=== PATIENT | male | born 1950 | race Caucasian/White ===

== ENCOUNTER 2018-04-21 08:02 | Outpatient (CLI) | payer BC, MEDICARE, OTHER ==
[2018-04-21 11:07] LABS: ALBUMIN 4.4 g/dL (3.2-5.5); ALBUMIN/GLOBULIN RATIO 1.5 (1.0-2.2); ALKALINE PHOSPHATASE 67 IU/L (42-121); ALT ALANINE AMINOTRANSFERASE 25 IU/L (10-60); AST ASPARTATE AMINOTRANSFERASE 31 IU/L (10-42); BUN - BLOOD UREA NITROGEN 18 mg/dL (6-20); CALCIUM 9.4 mg/dL (8.5-10.3); CARBON DIOXIDE - CO2 28 mmol/L (21-32); CHLORIDE 102 mmol/L (101-111); CHOL/HDL RATIO 2.7 (<5.0); CHOLESTEROL 185 mg/dL; CREATININE 0.8 mg/dL (0.6-1.2); GFR - MDRD 97 (>89); GLUCOSE 107 mg/dL (70-100); HDL CHOLESTEROL 69 mg/dL; LDL CHOLESTEROL,CALCULATED 102 mg/dL; LDL/HDL RATIO 1.5 (<3.6); SODIUM 137 mmol/L (135-145); TOTAL PROTEIN 7.4 g/dL (6.7-8.2); VLDL CHOLESTEROL 14 mg/dL
[2018-04-21 11:17] LABS: HB2 TOTAL 13.8 g/dL; HEMOGLOBIN A1C 0.55 g/dL; HEMOGLOBIN A1C % 5.8 % (4.6-6.2)
== END 2018-04-21 08:03 | disposition home or self-care (01) ==
LOC: LAB.F 08:02
PROVIDERS: ATTEND Internal Medicine
DX: E78.5 Hyperlipidemia, unspecified (principal); Z13.1 Encounter for screening for diabetes mellitus; Z12.5 Encounter for screening for malignant neoplasm of prostate
CPT/HCPCS: 36415; 80053; 80061; 83036; 83721; 84153

== ENCOUNTER 2018-11-04 07:26 | Outpatient (CLI) | payer MEDICARE, OTHER ==
[2018-11-04 11:30] LABS: ALBUMIN 4.1 g/dL (3.2-5.5); ALBUMIN/GLOBULIN RATIO 1.3 (1.0-2.2); ALKALINE PHOSPHATASE 69 IU/L (42-121); ALT ALANINE AMINOTRANSFERASE 34 IU/L (10-60); AST ASPARTATE AMINOTRANSFERASE 36 IU/L (10-42); BILIRUBIN,TOTAL 0.7 mg/dL (0.2-1.0); BUN - BLOOD UREA NITROGEN 17 mg/dL (6-20); CALCIUM 9.4 mg/dL (8.5-10.3); CARBON DIOXIDE - CO2 26 mmol/L (21-32); CHLORIDE 105 mmol/L (101-111); CHOL/HDL RATIO 2.8 (<5.0); CHOLESTEROL 168 mg/dL; CREATININE 0.9 mg/dL (0.6-1.2); GFR - MDRD 84 (>89); GLUCOSE 110 mg/dL (70-100); HDL CHOLESTEROL 60 mg/dL; LDL CHOLESTEROL,CALCULATED 97 mg/dL; LDL/HDL RATIO 1.6 (<3.6); SODIUM 140 mmol/L (135-145); TOTAL PROTEIN 7.2 g/dL (6.7-8.2); VLDL CHOLESTEROL 11 mg/dL
== END 2018-11-04 07:27 | disposition home or self-care (01) ==
LOC: LAB.F 07:26
PROVIDERS: ATTEND Internal Medicine
DX: E78.5 Hyperlipidemia, unspecified (principal)
CPT/HCPCS: 36415; 80053; 80061; 83721

== ENCOUNTER 2020-01-29 07:52 | Outpatient (CLI) | payer MEDICARE, OTHER ==
[2020-01-29 08:23] LABS: ALBUMIN 4.6 g/dL (3.2-5.5); ALBUMIN/GLOBULIN RATIO 1.5 (1.0-2.2); ALKALINE PHOSPHATASE 65 IU/L (42-121); ALT ALANINE AMINOTRANSFERASE 32 IU/L (10-60); AST ASPARTATE AMINOTRANSFERASE 33 IU/L (10-42); BILIRUBIN,TOTAL 0.8 mg/dL (0.2-1.0); BUN - BLOOD UREA NITROGEN 19 mg/dL (6-20); CALCIUM 9.9 mg/dL (8.5-10.3); CARBON DIOXIDE - CO2 29 mmol/L (21-32); CHLORIDE 104 mmol/L (101-111); CHOL/HDL RATIO 3.4 (<5.0); CHOLESTEROL 252 mg/dL; CREATININE 0.9 mg/dL (0.6-1.2); GLUCOSE 110 mg/dL (70-100); HDL CHOLESTEROL 75 mg/dL; LDL CHOLESTEROL,CALCULATED 155 mg/dL; LDL/HDL RATIO 2.1 (<3.6); SODIUM 140 mmol/L (135-145); TOTAL PROTEIN 7.7 g/dL (6.7-8.2); VLDL CHOLESTEROL 22 mg/dL
== END 2020-01-29 07:53 | disposition home or self-care (01) ==
LOC: LAB 07:52
PROVIDERS: ATTEND Internal Medicine
DX: E78.5 Hyperlipidemia, unspecified (principal)
CPT/HCPCS: 36415; 80053; 80061; 83721

== ENCOUNTER 2020-12-05 08:20 | Outpatient (CLI) | payer MEDICARE, OTHER ==
[2020-12-05 11:53] LABS: BASOPHILS % (AUTO) 0.4 %; EOSINOPHILS # (AUTO) 0.2 10^3/uL (0.0-0.7); EOSINOPHILS % (AUTO) 3.8 %; HCT - HEMATOCRIT 43.5 % (42.0-52.0); HGB - HEMOGLOBIN 13.9 g/dL (14.0-18.0); LYMPHOCYTES # (AUTO) 1.4 10^3/uL (1.5-3.5); LYMPHOCYTES % (AUTO) 25.1 %; MEAN CORPUSCULAR HEMOGLOBIN 29.9 pg (27.0-31.0); MEAN CORPUSCULAR VOLUME 93.5 fL (80.0-94.0); MEAN PLATELET VOLUME 11.1 fL (7.4-11.4); MONOCYTES # (AUTO) 0.5 10^3/uL (0.0-1.0); MONOCYTES % (AUTO) 9.5 %; NEUTROPHILS # (AUTO) 3.4 10^3/uL (1.5-6.6); PLT - PLATELET COUNT 226 10^3/uL (130-450); RED BLOOD COUNT 4.65 10^6/uL (4.70-6.10); WHITE BLOOD COUNT 5.6 x10^3/uL (4.8-10.8)
[2020-12-05 12:28] LABS: ALBUMIN 4.4 g/dL (3.2-5.5); ALBUMIN/GLOBULIN RATIO 1.3 (1.0-2.2); ALKALINE PHOSPHATASE 76 IU/L (42-121); ALT ALANINE AMINOTRANSFERASE 34 IU/L (10-60); AST ASPARTATE AMINOTRANSFERASE 33 IU/L (10-42); BILIRUBIN,TOTAL 1.2 mg/dL (0.2-1.0); BUN - BLOOD UREA NITROGEN 21 mg/dL (6-20); CALCIUM 9.7 mg/dL (8.5-10.3); CARBON DIOXIDE - CO2 27 mmol/L (21-32); CHLORIDE 100 mmol/L (101-111); CHOL/HDL RATIO 2.6 (<5.0); CHOLESTEROL 188 mg/dL; CREATININE 0.9 mg/dL (0.6-1.2); GFR - MDRD 84 (>89); GLUCOSE 103 mg/dL (70-100); HDL CHOLESTEROL 73 mg/dL; LDL CHOLESTEROL,CALCULATED 98 mg/dL; LDL/HDL RATIO 1.3 (<3.6); POTASSIUM 4.2 mmol/L (3.5-5.0); SODIUM 138 mmol/L (135-145); TOTAL PROTEIN 7.7 g/dL (6.7-8.2); TRIGLYCERIDES 85 mg/dL; VLDL CHOLESTEROL 17 mg/dL
== END 2020-12-05 08:21 | disposition home or self-care (01) ==
LOC: LAB.N 08:20
PROVIDERS: ATTEND Internal Medicine
DX: I10 Essential (primary) hypertension (principal); E78.5 Hyperlipidemia, unspecified; Z12.5 Encounter for screening for malignant neoplasm of prostate
CPT/HCPCS: 36415; 80053; 80061; 85025; G0103; 83721; 84153

== ENCOUNTER 2021-01-23 16:19 | Outpatient (CLI) | payer MEDICARE, OTHER | END 2021-01-23 16:20 | disposition home or self-care (01) | LOC: COV 16:19 | PROVIDERS: ATTEND Family Medicine | DX: M79.10 Myalgia, unspecified site (principal); R07.0 Pain in throat; Z20.822 Contact with and (suspected) exposure to COVID-19 ==

== ENCOUNTER 2021-05-13 09:51 | Day surgery (SDC) | payer MEDICARE, OTHER ==
[2021-05-13] MEDS ORDERED: LACTATED RINGERS 1,000 ML IV ONE ×2 (10:19→11:43)
--- NOTE | 2021-05-13 10:40 | ANESTHESIA ---
Pre-Anesthesia VS, & Labs - Diagnosis screening exam - Procedure colonoscopy Vital Signs: Temp Pulse Resp BP Pulse Ox 36 C L 77 14 141/80 H 99 05/13/21 10:03 05/13/21 10:03 05/13/21 10:03 05/13/21 10:03 05/13/21 10:03 Height: 5 ft 9 in Weight (kg): 91.2 kg Body Mass Index: 29.7 BMI Classification: Overweight - NPO >8 hours Home Medications and Allergies Home Medications: Ambulatory Orders Ibuprofen [Motrin] 1 tablet PO Q8H PRN 05/09/21 Lisinopril [Zestril] 20 mg PO DAILY 05/09/21 Rosuvastatin Calcium [Crestor] 10 mg PO DAILY 05/09/21 Ibuprofen [Motrin] 1 tablet PO Q8H PRN 05/09/21 Lisinopril [Zestril] 20 mg PO DAILY 05/09/21 Rosuvastatin Calcium [Crestor] 10 mg PO DAILY 05/09/21 Valacyclovir HCl [Valtrex] 1,000 mg PO TID PRN 05/09/21 predniSONE [Deltasone] 40 mg PO DAILY PRN 05/09/21 Allergies/Adverse Reactions: Allergies Allergy/AdvReac Type Severity Reaction Status Date / Time codeine AdvReac Unknown Verified 05/13/21 10:39 Anes History & Medical History - Anesthetic History Anesthesia Complications: reports: No previous complications - Medical History Cardiovascular: reports: Hypertension, High cholesterol Pulmonary: reports: None Gastrointestinal: reports: None Urinary: reports: None Neuro: reports: TIA Musculoskeletal: reports: Gout Endocrine/Autoimmune: reports: None Blood Disorders: reports: None Skin: reports: Herpes zoster (last episode 2 years ago) Smoking Status: Former smoker (quit 30 years ago) Psychosocial: reports: No issues indicated History of Cancer?: No - Surgical History General: reports: Colonoscopy Eyes Ears Nose Throat (EENT): reports: Other Orthopedic: reports: Rotator cuff repair, Arthroscopic surgery Other Past Surgical History: Bilateral TMJ arthroplasty Exam General: Alert, Oriented x3, Cooperative, No acute distress Dental: WNL, TMJ (Remy. joint replacements) Mouth Openin Fingerbreadth Neck Mobility: Normal Mallampati classification: II Thyromental Distance: 4-6 cm Mental/Cognitive Status: Alert/Oriented X3, Normal for patient Plan Anesthesia Type: Total IV Consent for Procedure(s) Verified and Reviewed: Yes Code Status: Attempt Resuscitation ASA classification: 2-Mild systemic disease Is this case an emergency?: No
[2021-05-13] MEDS ORDERED: PROPOFOL 500 MG/50 ML 500 MG/50 ML VIAL ONE ×3 (11:04→11:05)
[2021-05-13] MEDS ORDERED: PROPOFOL 200 MG/20 ML VIAL IVP ONE (11:38)
--- NOTE | 2021-05-13 11:57 | ANESTHESIA POST OP EVALUATION ---
Anesthesia Post Eval - Post Anesthesia Eval Vitals: Last Vital Signs Temp 36.4 C L 05/13/21 11:43 Pulse 68 05/13/21 11:43 Resp 16 05/13/21 11:43 BP 105/48 L 05/13/21 11:43 Pulse Ox 98 05/13/21 11:43 CV Function Including HR & BP: Stable Pain Control: Satisfactory Nausea & Vomiting: Negative Mental Status: Baseline Respiratory Status: Airway Patent Hydration Status: Satisfactory Anesthesia Complications: None
[2021-05-13 12:22] VITALS: BP 127/77
== END 2021-05-13 09:52 | disposition home or self-care (01) ==
LOC: SDS 09:51
PROVIDERS: ATTEND Surgery
PROC: 0DBM8ZZ Excision of Descending Colon, Via Natural or Artificial Opening Endoscopic (ICD-10-PCS; principal; 2021-05-13 11:00)
DX: Z12.11 Encounter for screening for malignant neoplasm of colon (principal); D12.4 Benign neoplasm of descending colon; K57.30 Diverticulosis of large intestine without perforation or abscess without bleeding; Z87.891 Personal history of nicotine dependence; I67.9 Cerebrovascular disease, unspecified; K64.8 Other hemorrhoids
CPT/HCPCS: 45380; J7120

== ENCOUNTER 2022-03-24 08:00 | Outpatient (CLI) | payer MEDICARE, OTHER ==
[2022-03-24 16:08] LABS: BASOPHILS % (AUTO) 0.6 %; EOSINOPHILS # (AUTO) 0.3 10^3/uL (0.0-0.7); EOSINOPHILS % (AUTO) 4.1 %; HCT - HEMATOCRIT 43.9 % (42.0-52.0); HGB - HEMOGLOBIN 14.1 g/dL (14.0-18.0); LYMPHOCYTES # (AUTO) 1.7 10^3/uL (1.5-3.5); LYMPHOCYTES % (AUTO) 25.3 %; MEAN CORPUSCULAR HEMOGLOBIN 29.1 pg (27.0-31.0); MEAN CORPUSCULAR HGB CONC 32.1 g/dL (32.0-36.0); MEAN CORPUSCULAR VOLUME 90.7 fL (80.0-94.0); MEAN PLATELET VOLUME 11.9 fL (7.4-11.4); MONOCYTES # (AUTO) 0.6 10^3/uL (0.0-1.0); MONOCYTES % (AUTO) 9.5 %; NEUTROPHILS % (AUTO) 60.2 %; PLT - PLATELET COUNT 179 10^3/uL (130-450); RED BLOOD COUNT 4.84 10^6/uL (4.70-6.10); RED CELL DISTRIBUTION WIDTH 12.5 % (12.0-15.0); WHITE BLOOD COUNT 6.6 x10^3/uL (4.8-10.8)
[2022-03-24 16:27] LABS: ALBUMIN 4.4 g/dL (3.2-5.5); ALBUMIN/GLOBULIN RATIO 1.2 (1.0-2.2); ALKALINE PHOSPHATASE 101 IU/L (42-121); ALT ALANINE AMINOTRANSFERASE 43 IU/L (10-60); AST ASPARTATE AMINOTRANSFERASE 37 IU/L (10-42); BUN - BLOOD UREA NITROGEN 19 mg/dL (6-20); CARBON DIOXIDE - CO2 28 mmol/L (21-32); CHLORIDE 101 mmol/L (101-111); CHOL/HDL RATIO 2.9 (<5.0); CHOLESTEROL 172 mg/dL; CK- CREATINE KINASE 108 IU/L (22-269); GFR - MDRD 74 (>89); GLUCOSE 92 mg/dL (70-100); HDL CHOLESTEROL 59 mg/dL; LDL CHOLESTEROL,CALCULATED 99 mg/dL; LDL/HDL RATIO 1.7 (<3.6); POTASSIUM 4.4 mmol/L (3.5-5.0); SODIUM 139 mmol/L (135-145); TOTAL PROTEIN 8.1 g/dL (6.7-8.2); TRIGLYCERIDES 70 mg/dL; URIC ACID 8.2 mg/dL (2.6-7.2); VLDL CHOLESTEROL 14 mg/dL
[2022-03-24 16:32] LABS: PSA TOTAL 1.487 ng/mL (0.000-2.000)
== END 2022-03-24 23:59 | disposition home or self-care (01) ==
LOC: LAB.R 08:00
PROVIDERS: ATTEND Internal Medicine
DX: Z00.00 Encounter for general adult medical examination without abnormal findings (principal); R05.1 Acute cough; M10.9 Gout, unspecified; E78.5 Hyperlipidemia, unspecified; I10 Essential (primary) hypertension; M54.50 Low back pain, unspecified; Z79.899 Other long term (current) drug therapy; B02.9 Zoster without complications
CPT/HCPCS: 80053; 80061; 82550; 83721; 84153; 84443; 84550; 85025

== ENCOUNTER 2025-02-04 14:20 | Observation (INO) ==
[2025-02-04 15:12] LABS: HCT - HEMATOCRIT 43.0 % (42.0-52.0); HGB - HEMOGLOBIN 13.9 g/dL (14.0-18.0); MEAN PLATELET VOLUME 10.1 fL (7.4-11.4); NRBC ABSOLUTE COUNT (AUTO) 0.00 x10^3/uL; NUCLEATED RED BLOOD CELLS AUTO 0.0 /100WBC; PLT - PLATELET COUNT 222 10^3/uL (130-450); RED CELL DISTRIBUTION WIDTH 13.1 % (12.0-15.0)
--- NOTE | 2025-02-04 15:28 | XRAY Report ---
PROCEDURE: XR Chest 1V INDICATIONS: Chest pain TECHNIQUE: One view of the chest was acquired. COMPARISON: None. FINDINGS: Surgical changes and devices: None. Lungs and pleura: No pleural effusions or pneumothorax. Hypoinflated without focal consolidation. Mediastinum: Mediastinal contours appear normal. Heart size is normal. Bones and chest wall: No suspicious bony lesions. Overlying soft tissues appear unremarkable. IMPRESSION: No acute cardiopulmonary process. Reviewed by: Amirah Foster MD on 02/04/2025 2:27 PM AKDT Approved by: Amirah Foster MD on 02/04/2025 2:27 PM AKDT Station ID: [id number]
[2025-02-04 15:38] LABS: TROPONIN I HIGH SENSITIVITY 6.8 ng/L (2.3-19.7)
[2025-02-04 15:39] LABS: ALT ALANINE AMINOTRANSFERASE 34.0 IU/L (10-60); AST ASPARTATE AMINOTRANSFERASE 35.0 IU/L (10-42); BUN - BLOOD UREA NITROGEN 18.0 mg/dL (6-20); CARBON DIOXIDE - CO2 26.0 mmol/L (21-32); CREATININE 1.0 mg/dL (0.6-1.3); GFR - MDRD 73.0 (>89)
[2025-02-04] MEDS: ONDANSETRON 4 MG/2 ML VIAL IVP STA (15:53)
[2025-02-04] MEDS: SODIUM CHLORIDE 0.9% 1,000 ML IV STA (15:53)
[2025-02-04] MEDS: MORPHINE 2 MG/ML CARPUJECT IVP STA (15:53)
--- NOTE | 2025-02-04 16:30 | CT Report ---
PROCEDURE: CT Abdomen/Pelvis W INDICATIONS: abdominal pain mid epigastric CONTRAST: 100ml omni 300 TECHNIQUE: After the administration of intravenous contrast, a CT scan of the abdomen and pelvis was performed. Images were recorded and evaluated at appropriate window settings. Reformats: coronal and sagittal. For radiation dose reduction, the following was used: automated exposure control, adjustment of mA and/or kV according to patient size. COMPARISON: None. FINDINGS: Image quality: Diagnostic. Lower chest: Left lower lobe groundglass opacity. Liver: No solid mass. Free fluid is seen adjacent to the liver. Gallbladder: Unremarkable. Biliary tree: No intrahepatic or extrahepatic dilation, accounting for age. Spleen: No splenomegaly. Pancreas: No pancreatic ductal dilation. Adrenals: No adrenal nodule. Kidneys and ureters: No hydronephrosis. No renal cystic lesion which requires follow up. No solid mass. Stomach, bowel and peritoneum: Multiple distended loops of small bowel are dilated up to 4 cm. There is a focal short segment transition point within the mid abdomen as seen on axial images 50-55. Distal to this is a longer segment of circumferential small bowel thickening with mild associated mesenteric edema. There is no extraluminal gas. The colon has normal appearance. The appendix is normal. Lymph nodes: No central or retroperitoneal adenopathy. Vessels: No infrarenal aortic aneurysm. Patent portal vein. PELVIS Reproductive organs: The prostate is enlarged measuring 6.1 cm. Bladder: No abnormal wall thickening. Pelvic lymph nodes: No pelvic adenopathy by size criteria. Bones: No aggressive osseous abnormality. Other: No significant ventral or inguinal hernia. IMPRESSION: Small bowel obstruction associated with an area of small bowel enteritis. Reviewed by: Amirah Foster MD on 02/04/2025 3:28 PM RICARDA Approved by: Amirah Foster MD on 02/04/2025 3:28 PM AKDT Station ID: [id number]
--- NOTE | 2025-02-04 16:57 | ED Physician Documentation ---
History of Present Illness Stated complaint Stated Complaint: ABD PX Chief complaint Chief Complaint: Abd Pain History obtained from History obtained from: Patient History of Present Illness Timing: Prior to arrival Additonal information Additional information: Patient is a 74-year-old male presenting to the emergency department with midline abdominal pain. Symptoms have been going on since around 730 this morning. Patient last ate breakfast around 7 AM. He notes he was feeling fine last night no history of abdominal surgeries he is not vomiting but feels very nauseous. He describes his pain in his epigastric region rating down to his lower belly but no pain radiating to his testicles or chest. He has no shortness of breath no dizziness or lightheadedness with his symptoms. He describes this pain as stabbing pain that seems to come and go. Last colonoscopy was about 3 years ago that Was in 2020 showing tubular adenoma with no signs of cancer. Patient denies any bowel movements no diarrhea he has not believe he is passing gas but he has burping Meds/Allgy Home Medications Ambulatory Orders Medication Instructions Recorded Confirmed ibuprofen 800 mg tablet 1 tab PO Q8H PRN PAIN &/OR F EVER 05/09/21 05/13/21 lisinopril 20 mg tablet (Zestril) 20 mg PO DAILY 05/0905/13/21 rosuvastatin 10 mg tablet (Crestor) 10 mg PO DAILY 08/2505/13/21 Allergies Allergies Allergy/AdvReac Type Severity Reaction Status Date / Time codeine AdvReac Unknown Verified 02/04/25 14:29 PFSH Active Problems All Active Problems (Updated 02/04/25 @ 16:55 by Latasha Moss MD) Small bowel obstruction (Acute) Enteritis of small bowel (Acute) Medical History Medical History (Updated 02/04/25 @ 16:55 by Latasha Moss MD) Erectile dysfunction Torn meniscus With surgery in 1999 TMJ (temporomandibular joint syndrome) With surgery in 1988 Hypertension Hyperlipidemia Shingles 2016 Gout GERD (gastroesophageal reflux disease) Surgical History Surgical History (Updated 02/04/25 @ 16:55 by Latasha Moss MD) History of colonoscopy H/O arthroscopic knee surgery Family History Family History (Updated 02/04/25 @ 16:58 by Latasha Moss MD) Father Alcoholism COPD (chronic obstructive pulmonary disease) Mother CAD (coronary artery disease) Sister Alcoholism Son MVA (motor vehicle accident) Social History Social History Smoking Status: Former smoker If you are a former smoker, when did you quit? (Date/Year): 1989 Number of Years Smoked: 30 How many cigarettes a day do you smoke? 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 [employer] Retired: Yes Service: Yes POLST Patient has POLST: No Exam Exam Vital Signs: Vital Signs x48h Temp Pulse Resp BP Pulse Ox 02/04/25 16:00 75 18 165/93 H 96 02/04/25 15:06 59 L 21 185/95 H 99 02/04/25 14:29 36 C L 61 20 143/74 H 98 Constitutional normal general appearance HENMT normocephalic and head/scalp atraumatic Eyes PERRL, EOMs intact bilaterally and conjunctivae normal Neck/C-Spine visual inspection normal Lymph no lymphadenopathy noted Chest inspection of chest normal Respiratory breath sounds equal bilaterally, normal respiratory effort and clear to auscultation bilaterally Cardiovascular normal heart rate noted, regular rhythm noted, no gallop and no rub Gastrointestinal abdomen normal to inspection Generalized abdominal tenderness on palpation mild distention but it does appear slightly soft on examination. Generalized guarding on examination. Genitourinary no CVA tenderness Results Vitals Vitals: Vital Signs - 24 hr 02/04/25 14:29 02/04/25 15:06 02/04/25 15:53 Temperature 36 C L Temperature Source Temporal Artery Scan Pulse Rate 61 59 L Respiratory Rate 20 21 Blood Pressure 143/74 H 185/95 H O2 Saturation 98 99 O2 Source Room air Room air Pain Intensity 10 10 02/04/25 16:00 Temperature Temperature Source Pulse Rate 75 Respiratory Rate 18 Blood Pressure 165/93 H O2 Saturation 96 O2 Source Room air Pain Intensity 4 Oxygen O2 Source Room air EKG (time done) 1453: EKG releavant findings:: EKG personally interpreted by author of this note. Relevant findings are: Rate: Rate (enter#) (71 bpm) Rhythm: NSR [place]: Normal Intervals: Normal NM QRS: QRS normal Ischemia: Normal ST segments Other comments: Other comments Compare to prior EKG: Unchanged from prior EKG Computer interpretation: Agree with computer Labs Labs: Laboratory Tests 02/04/25 15:08 WBC 11.3 H RBC 4.73 Hgb 13.9 L Hct 43.0 MCV 90.9 MCH 29.4 MCHC 32.3 RDW 13.1 Plt Count 222 MPV 10.1 Neut # (Auto) 8.8 H Lymph # (Auto) 1.4 L [place] # (Auto) 0.7 Eos # (Auto) 0.3 Baso # (Auto) 0.0 Absolute Nucleated RBC 0.00 Nucleated RBC % 0.0 Sodium 136 Potassium 3.9 Chloride 100 L Carbon Dioxide 26 Anion Gap 10.0 BUN 18 Creatinine 1.0 Estimated GFR (MDRD) 73 L Glucose 126 H Calcium 10.4 H Total Bilirubin 0.6 AST 35 ALT 34 Alkaline Phosphatase 114 Troponin I High Sens 6.8 Total Protein 7.5 Albumin 4.6 Globulin 2.9 Albumin/Globulin Ratio 1.6 Lipase 17 PD Medical Decision Making ED course Complexity details: reviewed old records and reviewed results ED course: Patient is a 74-year-old male presenting to the emergency department with abdominal pain symptoms started around 7 AM he has no history of abdominal surgeries generally healthy no vomiting but has some abdominal cramping with the symptoms. He denies any diarrhea no bowel movements today and he is not passing gas. He has some nausea with the symptoms and has been belching as well. Vitals here in the ED reassuring he is normotensive nontachycardic afebrile. CXR: No acute cardiopulmonary process. Labs showed minimal leukocytosis his EKG shows occasional PVCs but no acute ST elevations and his troponin is well within normal limits he has some mild leukocytosis of 11.8 no significant electrolyte abnormality or elevation in LFTs or bilirubin. Patient sent for CT abdomen pelvis CT abdomen pelvis: Small bowel obstruction associated with an area of small bowel enteritis. Discussed case with on-call surgeon Dr. Morse he recommends starting NG tube he will evaluate patient in the hospital but would like hospitalist to admit patient. Discussed with hospitalist Dr. Chavis who accepts patient and will admit to floor NG tube orders were placed here in the ED. Discharge Plan Discharge Patient Disposition: [facility] DC/Xfer Condition: Good Clinical Impression: Enteritis of small bowel, Small bowel obstruction Prescriptions: No Action ibuprofen 800 MG tablet 1 tab PO Q8H PRN (Reason: PAIN &/OR FEVER) lisinopril [Zestril] 20 MG tablet 20 mg PO DAILY rosuvastatin [Crestor] 10 MG tablet 10 mg PO DAILY Print Language: Vincentian
--- NOTE | 2025-02-04 17:01 | HISTORY & PHYSICAL EXAMINATION ---
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 Last colonoscopy was 2020.He does not have any major medical issues. He does not have any history of GI problems. He takes an ibuprofen 800 mg a day on a daily basis for years now because of chronic back pain. To prevent ulcers he also takes a proton pump inhibitor on a daily basis. He has not had any recent change in bowel or bladder habits. He [place] the [place] in [facility] [place] had any more recent travel than that. No recent raw fish, oysters. Did eat some cooked mussels last week. No one else in his family is sick. There is no diarrhea. He does not have any vascular history other than a "mini stroke" 9 years ago when he was in [place] at work. He was sitting at his desk at work when he suddenly was overcome by intense nausea, cold sweats, and vision started going and he could not hear the person in front of him. He was taken to the hospital and released the next day where he was told he had "a mini stroke". Imaging was negative. A few days later a friend of his who is a doctor and lives in [place] saw him for a heart murmur and he was told that his heart was fine. He has never had angina, congestive heart failure. His risk for vascular disease is male sex, hyperlipidemia, hypertension. His primary care provider is a midlevel provider that he cannot remember her name. She is with [facility]. He woke this morning and started having epigastric abdominal pain. The pain went from the epigastrium to the umbilicus was intense and a 10 out of a 10. It was unremitting. He felt like it was nonstop with pain being poured on top of pain over and over again. No chest pain. No shortness of breath. No neck pain or jaw pain. No vomiting. Bowel movement was today. No diarrhea. No blood in urine or stool. He has never had gallbladder issues. After no relief of pain with an extra ibuprofen, he came to the ER. He said that as he was getting up from his chair in the waiting room to be taken back by the triage nurse, the pain was overwhelmingly intense and he lost consciousness for a moment. Temperature was 36.6. Pulse 61. Respirations 20. O2 sat 98% on room air, and 143/74 blood pressure. His lungs were clear, no respiratory distress. Abdomen had generalized abdominal tenderness on palpation with mild distention but was soft. Generalized guarding on exam. No CVA tenderness. His chemistries were normal except for calcium that was mildly elevated at 10.4. In looking at his old records his calcium was 9.4 in 2018, 10.March, and now 10.4. Liver enzymes are normal. Lipase is 17. White cell count was 11.3, hemoglobin 13.9. He did have a mild left shift on his white cell count. Chest x-ray did not have acute cardiopulmonary process. Abdomen/pelvis CT had left lower lobe groundglass opacity. Free fluid seen adjacent to the liver. The biliary tree was unremarkable as was the gallbladder. Spleen and pancreas were unremarkable. Small bowel, had multiple distended loops of small bowel dilated up to 4 cm. Focal short segment transition point within the mid abdomen. Distal to this is a longer segment of circumferential small bowel thickening with mild associated mesenteric edema. There is no extraluminal gas. No infrarenal aortic aneurysm. Patent portal vein. The ER provider discussed the case with general surgery. Patient needs to be admitted for small bowel enteritis with possible early obstruction. General surgery is asking if we could admit and they will consult. On review of systems he tells me that he has early cataracts. But no glaucoma or vision problems. No problems with swallowing or allergies. Had bronchitis once in his life but no chronic lung problems. No history of angina, congestive heart failure, palpitations. No edema orthopnea. No problems with GI tract. No reflux, indigestion. He takes the ibuprofen 800 mg a day and then takes a PPI to protect his stomach. He denies any problems with his prostate. Pees 2 times a night but he also drinks a glass of water twice a night. No problem with stream. He has terrible chronic back pain and has had lumbar epidural steroid injections. That is why he takes the ibuprofen. But no problems in his hips or knees. No recent skin changes. No unexpected weight loss or weight gain. No cold symptoms. Denies depression, anxiety, suicidal ideation. No hallucinations. Denies any problems with memory, syncope, or seizures. Meds/Allgy Home Medications Ambulatory Orders Medication Instructions Recorded Confirmed ibuprofen 800 mg tablet 1 tab PO Q8H PRN PAIN &/OR F EVER 05/09/21 05/13/21 lisinopril 20 mg tablet (Zestril) 20 mg PO DAILY 05/0905/13/21 rosuvastatin 10 mg tablet (Crestor) 10 mg PO DAILY 08/2505/13/21 Allergies Allergies Allergy/AdvReac Type Severity Reaction Status Date / Time codeine AdvReac Unknown Verified 02/04/25 14:29 PFSH Active Problems All Active Problems (Updated 02/04/25 @ 19:33 by Latasha Moss MD) Hypercalcemia (Acute) Full code status (Acute) Small bowel obstruction (Acute) Enteritis of small bowel (Acute) Medical History Medical History (Updated 02/04/25 @ 19:33 by Latasha Moss MD) Chronic back pain Erectile dysfunction Torn meniscus With surgery in 1999 TMJ (temporomandibular joint syndrome) With surgery in 1988 Hypertension Hyperlipidemia Shingles 2016 Gout GERD (gastroesophageal reflux disease) Surgical History Surgical History (Updated 02/04/25 @ 17:40 by Angelo Morse MD) History of mandibular surgery History of colonoscopy H/O arthroscopic knee surgery Family History Family History (Updated 02/04/25 @ 16:58 by Latasha Moss MD) Father Alcoholism COPD (chronic obstructive pulmonary disease) Mother CAD (coronary artery disease) Sister Alcoholism Son MVA (motor vehicle accident) Social History Social History (Updated 02/04/25 @ 19:15 by Latasha Moss MD) Smoking Status: Former smoker If you are a former smoker, when did you quit? (Date/Year): 06/07/1987 Number of Years Smoked: 30 How many cigarettes a day do you smoke? (20 cigarettes=1 Pk): 20 Second hand tobacco smoke exposure: No Do you dip or chew tobacco?: No Do you vape?: No Living arrangement: At home Marital Status: Living Condition: With spouse/s.o. Support Person: Yes Living Situation Details: 1/2-year the [place], other half year [facility]. to second . 1 child with first . Step child with second . Has a Durable Power of Loading Unit Operator Seating for Health Care?: No DPOA on file?: No Has Health Care Directive?: No DPOA / Health Care Directive - Additional Notes: He is asking where he could set this up. Also wants to know where he can set up a trust. Physical Activity: Competitive athletics How many days per week?: 4 Level: Independent Physical - Functional Details: pickleball 4 times a week. Very active. No use of DME. 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 No use of durable medical equipment. Lives half the year here in [place] and the other half of the year and [facility] with his second . Exam Exam Vital Signs: Vital Signs x48h Temp Pulse Pulse Resp BP BP Pulse Ox 02/04/25 18:30 78 164/89 H 02/04/25 17:54 36.6 C 83 12 166/98 H 97 02/04/25 17:19 65 18 164/85 H 98 02/04/25 16:00 75 18 165/93 H 96 02/04/25 15:06 59 L 21 185/95 H 99 02/04/25 14:29 36 C L 61 20 143/74 H 98 Alert and oriented pleasant white male looks stated age, with NG tube in place. Able to give me a lucid history and currently pain is controlled Constitutional normal general appearance and average body habitus HENFL normocephalic, head/scalp atraumatic and hearing grossly normal bilaterally Eyes PERRL and no scleral icterus Neck/C-Spine supple and no carotid bruits Chest inspection of chest normal and palpation of chest normal Respiratory breath sounds equal bilaterally, normal respiratory effort, clear to auscultation bilaterally and no wheezes Rales present both lung bases, very faint Cardiovascular normal heart rate noted, regular rhythm noted, no gallop, no rub and no murmur Gastrointestinal abdomen normal to inspection, abdomen soft to palpation and normoactive bowel sounds Mild generalized tenderness. Says he feels better than the ER but he dreads the idea of the pain coming back. Genitourinary no CVA tenderness Extremities normal to inspection, normal to palpation, no tenderness, full ROM and no joint enlargement Neurology drive thru order taker II-XII intact, no movement abnormality noted, no focal motor deficit noted and deep tendon reflexes 2+ bilaterally Psychiatry oriented x3, thought process normal, cooperative, affect normal and psychomotor activity normal Skin skin color normal, no rash, no lesions and no ecchymosis noted Conclusion/Plan Problem List (1) Enteritis of small bowel: Plan: Differential diagnosis is broad right now. But doubtful he has inflammatory bowel disease. But there does appear to be skip areas in his small bowel where he has enteritis, normal bowel then enteritis again. Quite dilated and painful for this gentleman. NG tube suction really helped. Other possibility is that of stomach gastritis. I would think that he would have a stomach ulcer or duodenal ulcer from his daily Motrin and this should not give him small bowel dysfunction. Other idea is that of ischemic lesion. But it should be a continuous bowel problem not a skip bowel problem. He does have a history of "mini stroke" but I think, with his history, that he is describing a severe vasovagal reaction. He has no reduced ejection fracture, sudden low outflow state, or documented vascular disease to make me think he has ischemic bowel. The anatomy of this also does not lend itself to ischemic bowel with SMA or DANNA. Infectious diarrhea or parasite is a possibility but he does not eat raw fish, has not eaten any raw fish recently and there is no one else sick in his family. There is also no diarrhea. Plan: Observation status as surgery does evaluation Surgery has already ordered a small bowel follow-through with Gastrografin I will order IV fluids for hydration, Zofran ODT and IV for nausea, oxycodone and Dilaudid IV for pain I will order low intermittent suction to the NG tube already placed Daily CBC and BMP (2) Hypertension: Plan: Right now we are giving him IV fluids. I am also going to add oxycodone for p.o. pain meds, and Dilaudid for IV pain meds. Because he is going to be going on low intermittent suction, I we will give him Vasotec 1.25 mg IV push every 6 hours for hypertension. Qualifiers: Hypertension type: primary hypertension Qualified Code(s): I10 - Essential (primary) hypertension (3) Chronic back pain: Plan: Currently using 800 mg of ibuprofen on a daily basis. I explained to him the risk of that. He might want to consider going to Celebrex instead to slightly reduce his risk of gastritis or duodenal ulcer. Continue the proton pump inhibitor. Qualifiers: Back pain location: low back pain (4) Full code status: Plan: If he is without a pulse or pressure the patient stated he still wants to be resuscitated. He wants CPR and chest compression and intubation. (5) Hypercalcemia: Plan: check PTH in the morning Lab Results Lab results reviewed: Yes 02/04/25 15:08 02/04/25 15:08 Core Measures Anticipated LOS I expect patient to be DC'd or transferred within 96 hours.: Yes DVT/VTE - Prophylaxis VTE/DVT Device ordered at admit?: Yes
--- NOTE | 2025-02-04 17:36 | CONSULTATION NOTE ---
Referring Provider Name of Referring Provider:: Dr Moss Consult Date: 02/04/25 Chief Complaint Chief Complaint Chief Complaint: Abdominal pain History of Present Illness Admitted From Admitted From:: ED History Obtained From History obtained from: Patient Exam Limitations: None History of Present Illness HPI Comment/Other: Mr Tafoya is a 74 year old male who developed the sudden onset of mid-epigastric abdominal pain at 0700 today. The pain was constant, sharp, non-radiating and at a level of "12" in severity. He had a bowel motion several hours before the discomfort began. He denies diarrhea, nausea, emesis, or fever. He has not passed flatus today since the am bowel motion. He has never had similar symptoms. He denies recent travel or the ingestion of unusual foods. He has never had abdominal surgery. He does not use toothpicks. There is no personal or FH of Crohn's disease or other issues with the large or small bowel. Since admission to the ED he was given IV Dilaudid and an NGT has been placed. His discomfort has been reduced to 5-6. PFSH Active Problems All Active Problems Small bowel obstruction (Acute) Enteritis of small bowel (Acute) Medical History Medical History Erectile dysfunction Torn meniscus With surgery in 1999 TMJ (temporomandibular joint syndrome) With surgery in 1988 Hypertension Hyperlipidemia Shingles 2016 Gout GERD (gastroesophageal reflux disease) Surgical History Surgical History (Updated 02/04/25 @ 17:40 by Angelo Morse MD) History of mandibular surgery History of colonoscopy H/O arthroscopic knee surgery Family History Family History (Updated 02/04/25 @ 16:58 by Latasha Moss MD) Father Alcoholism COPD (chronic obstructive pulmonary disease) Mother CAD (coronary artery disease) Sister Alcoholism Son MVA (motor vehicle accident) Social History Social History (Updated 02/04/25 @ 17:00 by Latasha Moss MD) Smoking Status: Former smoker If you are a former smoker, when did you quit? (Date/Year): 1989 Number of Years Smoked: 30 How many cigarettes a day do you smoke? 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 [employer] Retired: Yes Service: Yes POLST Patient has POLST: No Meds/Allgy Home Medications Ambulatory Orders Medication Instructions Recorded Confirmed ibuprofen 800 mg tablet 1 tab PO Q8H PRN PAIN &/OR F EVER 05/09/21 05/13/21 lisinopril 20 mg tablet (Zestril) 20 mg PO DAILY 05/0905/13/21 rosuvastatin 10 mg tablet (Crestor) 10 mg PO DAILY 08/2505/13/21 Allergies Allergies Allergy/AdvReac Type Severity Reaction Status Date / Time codeine AdvReac Unknown Verified 02/04/25 14:29 Results Lab Results 02/04/25 15:08 02/04/25 15:08 Other Lab Results: Lab Results x24hrs 02/04/25 Range/Units 15:08 WBC 11.3 H (4.8-10.8) x10^3/uL RBC 4.73 (4.70-6.10) 10^6/uL Hgb 13.9 L (14.0-18.0) g/dL Hct 43.0 (42.0-52.0) % MCV 90.9 (80.0-94.0) fL MCH 29.4 (27.0-31.0) pg MCHC 32.3 (32.0-36.0) g/dL RDW 13.1 (12.0-15.0) % Plt Count 222 (130-450) 10^3/uL MPV 10.1 (7.4-11.4) fL Neut # (Auto) 8.8 H (1.5-6.6) 10^3/uL Lymph # (Auto) 1.4 L (1.5-3.5) 10^3/uL [place] # (Auto) 0.7 (0.0-1.0) 10^3/uL Eos # (Auto) 0.3 (0.0-0.7) 10^3/uL Baso # (Auto) 0.0 (0.0-0.1) 10^3/uL Absolute Nucleated RBC 0.00 x10^3/uL Nucleated RBC % 0.0 /100WBC Sodium 136 (135-145) mmol/L Potassium 3.9 (3.5-4.5) mmol/L Chloride 100 L (101-111) mmol/L Carbon Dioxide 26 (21-32) mmol/L Anion Gap 10.0 (6-13) BUN 18 (6-20) mg/dL Creatinine 1.0 (0.6-1.3) mg/dL Estimated GFR (MDRD) 73 L (>89) Glucose 126 H (74-104) mg/dL Calcium 10.4 H (8.5-10.3) mg/dL Total Bilirubin 0.6 (0.2-1.0) mg/dL AST 35 (10-42) IU/L ALT 34 (10-60) IU/L Alkaline Phosphatase 114 (42-121) IU/L Troponin I High Sens 6.8 (2.3-19.7) ng/L Total Protein 7.5 (6.4-8.9) g/dL Albumin 4.6 (3.2-5.5) g/dL Globulin 2.9 (2.1-4.2) g/dL Albumin/Globulin Ratio 1.6 (1.0-2.2) Lipase 17 (11-82) U/L Diagnostic Imaging Results Diagnostic Imaging Results: positive Final report reviewed Diagnostic Imaging Results Comments: CT Abd/Pelvis - dilated small bowel proximal to a small segment of enteritis. No free air. No free fluid. No evidence of a mesenteric swirl or intrnal hernia. Stool and air in colon. No inguinal or femoral hernias Review of Systems Constitutional Reports: Diaphoresis Gastrointestinal Reports: Abdominal pain Exam Exam Vital Signs: Vital Signs x48h Temp Pulse Resp BP Pulse Ox 02/04/25 17:19 65 18 164/85 H 98 02/04/25 16:00 75 18 165/93 H 96 02/04/25 15:06 59 L 21 185/95 H 99 02/04/25 14:29 36 C L 61 20 143/74 H 98 Constitutional normal general appearance HENMT normocephalic, head/scalp atraumatic, hearing grossly normal bilaterally and oropharynx normal NGT in place and functional Eyes PERRL, EOMs intact bilaterally, conjunctivae normal and no scleral icterus Neck/C-Spine visual inspection normal and trachea midline Lymph no lymphadenopathy noted Chest inspection of chest normal and palpation of chest normal Respiratory breath sounds equal bilaterally, normal respiratory effort, clear to auscultation bilaterally and no wheezes Cardiovascular normal heart rate noted, regular rhythm noted and no murmur Gastrointestinal abdomen normal to inspection, abdomen soft to palpation, nontender to percussion, nondistended and no masses Hypoactive BS; tender in mid-epigastric region but no peritoneal signs Extremities normal to inspection, normal to palpation, no tenderness and full ROM Neurology no movement abnormality noted, no focal motor deficit noted and speech normal Psychiatry mental status grossly normal, thought process normal, cooperative and affect normal Skin skin color normal, no rash, no lesions and skin turgor normal Conclusion/Plan Problem List (1) Small bowel obstruction: Plan: There is no clinical, lab, or image evidence of ischemic bowel at this time (2) Enteritis of small bowel: Plan 1) NGT to LIS 2) Maintenance IV fluids 3) PPI (ordered) 4) Toradol (ordered) 5) SB challenge study (ordered) 6) Labs in am 7) May have ice chips with NGT in place and on LIS 8) Surgery will follow Angelo Morse MD, [facility] General Surgery Service Lab Results 02/04/25 15:08 02/04/25 15:08 Diagnostic Imaging Results Diagnostic Imaging Results: positive Final report reviewed
[2025-02-04] MEDS ORDERED: DIATR MEGLU/DIATRIZOATE SODIUM 120 ML BOTTLE ONE (17:37)
[2025-02-04] MEDS ORDERED: ONDANSETRON 4 MG/2 ML VIAL IVP PRN (17:42)
[2025-02-04] MEDS ORDERED: ACETAMINOPHEN 325 MG TABLET PO PRN (17:42)
[2025-02-04] MEDS ORDERED: SODIUM CHLORIDE FLUSH 0.9% 10 ML SYRINGE IVP PRN (17:42)
[2025-02-04] MEDS ORDERED: ONDANSETRON ODT 4 MG TABLET TL PRN (17:42)
[2025-02-04] MEDS ORDERED: oxyCODONE 5 MG TABLET PO PRN (17:42)
--- NOTE | 2025-02-04 17:44 | XRAY Report ---
PROCEDURE: XR Chest for Line Placement INDICATIONS: NG placement TECHNIQUE: One view of the chest was acquired. COMPARISON: 02/04/2025. FINDINGS: Surgical changes and devices: There is been interval placement of an enteric tube which terminates within the stomach. Lungs and pleura: No pleural effusions or pneumothorax. No consolidation. Mediastinum: Mediastinal contours appear normal. Heart size is normal. Bones and chest wall: No suspicious bony lesions. Overlying soft tissues appear unremarkable. IMPRESSION: Enteric tube terminating within the stomach. Reviewed by: Amirah Foster MD on 02/04/2025 4:42 PM RICARDA Approved by: Amirah Foster MD on 02/04/2025 4:42 PM AKFERMIN Station ID: [id number]
[2025-02-04] MEDS: SODIUM CHLORIDE 0.9% 1,000 ML IV SCH (18:20)
[2025-02-04] MEDS: SODIUM CHLORIDE FLUSH 0.9% 10 ML SYRINGE IVP SCH (18:21)
[2025-02-04] MEDS: KETOROLAC 15 MG/ML VIAL IVP SCH (18:21)
[2025-02-04] MEDS: ENALAPRILAT 1.25 MG/ML VIAL IVP SCH (18:29)
[2025-02-04] MEDS: DIATR MEGLU/DIATRIZOATE SODIUM 120 ML BOTTLE PO ONE (18:37)
[2025-02-05 03:05] LABS: GLUCOSE, URINE (UA) NEGATIVE (NEGATIVE); KETONES,URINE (UA) TRACE mg/dL (NEGATIVE); OCCULT BLOOD,URINE TRACE-INTACT (NEGATIVE)
[2025-02-05 03:11] LABS: SQUAMOUS EPITHELIAL CELL,UR RARE Squamous (<= Few)
[2025-02-05] MEDS: HYDROmorphone 0.5 MG/0.5 ML SYRINGE IVP PRN (04:00)
[2025-02-05 05:11] LABS: HCT - HEMATOCRIT 41.3 % (42.0-52.0); HGB - HEMOGLOBIN 13.1 g/dL (14.0-18.0); MEAN PLATELET VOLUME 10.3 fL (7.4-11.4); NRBC ABSOLUTE COUNT (AUTO) 0.00 x10^3/uL; NUCLEATED RED BLOOD CELLS AUTO 0.0 /100WBC; PLT - PLATELET COUNT 203 10^3/uL (130-450); RED CELL DISTRIBUTION WIDTH 13.2 % (12.0-15.0)
[2025-02-05 05:29] LABS: BUN - BLOOD UREA NITROGEN 19.0 mg/dL (6-20); CARBON DIOXIDE - CO2 26.0 mmol/L (21-32); CREATININE 1.0 mg/dL (0.6-1.3); GFR - MDRD 73.0 (>89)
[2025-02-05] MEDS: PANTOPRAZOLE 40 MG VIAL IV SCH (06:29)
[2025-02-05] MEDS ORDERED: PANTOPRAZOLE 40 MG VIAL IVP SCH (07:00)
--- NOTE | 2025-02-05 08:06 | PROVIDER PROGRESS NOTE ---
Progress Note Progress Note Progress Note: General Surgery Progress Note Hospital Day # 2 - SBO vs Ileus Code Status: Full ASSESSMENT: 1) SBO/enteritis - resolved. Etiology of the enteritis unknown PLAN: 1) Remove NGT (Done) 2) Clear liquid diet (Ordered) 3) If no recurrence of symptoms this morning, may be discharged to home <><><><><> PERTINENT INTERVAL ISSUES: None S: Feels back to normal. Passing stool and flatus from rectum. No abdominal pain. NGT irritating to throat OBJECTIVE: I/O: (NGT 1450 yesterday - tube has been clamped since SB challenge started) VS: BP 139/85; P 72; RR 16; T 36.6 EXAMINATION: MENTAL STATUS: AAO; Comfortable EYES: Pupils equal, round and reactive to light, sclera anicteric, EARS, NOSE, MOUTH, THROAT: Normal hearing, Oral mucous membranes moist and without lesions; NGT in place - Removed NECK: No crepitus, lymphadenopathy, or thyromegaly LUNGS: Clear to auscultation without wheezing; No use of accessory muscles to breathe CARDIOVASCULAR: Heart-NSR without murmurs; ABD: Soft, non-tender, non-distended, BS EXTREMITIES: No clubbing, cyanosis, infections SKIN: Anicteric; No rashes, lesions, ulcerations LABS: WBC 8.4; H&H 41.3/13.1; PLT 203K; NA 149; K 4.1; Cr 1.01; Glu 107 CULTURES:None pending] IMAGING: SB Challenge - contrast in colon All images were personally reviewed by me for this encounter. ANTIMICROBIALS: Prophylactic completed PAIN CONTROL: Dilaudid IV prn, Ketorolac IV VTEP: Chemical: Enoxaparin, 40mg, SQ, QD Mechanical: SCD Angelo Morse MD, FACS General Surgery Service
--- NOTE | 2025-02-05 08:34 | XRAY Report ---
PROCEDURE: XR SBFT Challenge Panel INDICATIONS: SBO vs Ileus COMPARISON: CT abdomen pelvis 02/04/2025 FINDINGS: KUB: Preprocedural instrument maker apprentice film demonstrates a normal bowel gas pattern. No suspicious abdominal calcifications. Visualized solid organ contours appear normal. No suspicious bony abnormalities. Nasogastric tube is present. Small bowel: There is delayed transit time of barium through the small bowel. Small bowel loops are of normal caliber throughout. Small minimal contrast is identified within the bowel 4 hours, contrast is within the colon at 10.5 hours. IMPRESSION: Initial delay of contrast at the 4 hour brook. However, by the last image at 10.5 hours, contrast is within the colon. No dilated loops of bowel. Reviewed by: Maribeth Guerra MD on 02/05/2025 8:32 AM PDT Approved by: Maribeth Guerra MD on 02/05/2025 8:32 AM PDT Station ID: [id number]
[2025-02-05] MEDS: ENOXAPARIN 40 MG/0.4 ML SYRINGE SUBQ SCH (08:49)
--- NOTE | 2025-02-05 10:11 | PHARMACY PROGRESS NOTE ---
Best Possible Medication History Admit Date and Time: 02/04/25 1645 Home Medications Medication Instructions Recorded Confirmed Type ibuprofen 800 mg tablet 800 mg PO DAILY PAIN &/OR FE USHA 05/09/21 02/05/25 History lisinopril 20 mg tablet (Zestril) 40 mg PO DAILY 05/0902/05/25 History omeprazole 20 mg capsule,delayed 20 mg PO QDAC 5 02/05/25 History release rosuvastatin 40 mg tablet (Crestor) 40 mg PO DAILY 07/0102/05/25 History Processed by: Pharmacy Medications reviewed in ED?: No Medication History completed: Yes Patient Interview: Pt interview ONLY source [facility] Statement: As the person ultimately responsible for medication therapy, providers are able to order a medication from an existing home medication list in [facility] via the "Reconcile Routine" prior to Confirmation of that medication by ground support equipment fitter. Such practice is discouraged except when the physician, in their clinical judgment, deems that a medical need exists for a medication without regard to previous use.
[2025-02-05 15:00] VITALS: BP 140/78; TEMP 98.1; O2SAT 98
--- NOTE | 2025-02-05 15:04 | Discharge Summary ---
Discharge Summary Admit Date: 02/04/25 Discharge Date: 02/05/25 Discharging Provider: Latasha Moss MD Primary Care Provider: TERRANCE Desai Code Status: Attempt Resuscitation DIAGNOSES Discharge Diagnoses with Status of Each Condition: 1. Enteritis of small bowel 2. Hypertension 3. Chronic back pain 4. Full CODE STATUS 5. 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 Last colonoscopy was 2020.He does not have any major medical issues. He does not have any history of GI problems. He takes an ibuprofen 800 mg a day on a daily basis for years now because of chronic back pain. To prevent ulcers he also takes a proton pump inhibitor on a daily basis. He has not had any recent change in bowel or bladder habits. He spends the winter in [facility] [place]. Has not had any more recent travel than that. No recent raw fish, oysters. Did eat some cooked mussels last week. No one else in his family is sick. There is no diarrhea. He does not have any vascular history other than a "mini stroke" 9 years ago when he was in [place] at work. He was sitting at his desk at work when he suddenly was overcome by intense nausea, cold sweats, and vision started going and he could not hear the person in front of him. He was taken to the hospital and released the next day where he was told he had "a mini stroke". Imaging was negative. A few days later a friend of his who is a doctor and lives in [place] saw him for a heart murmur and he was told that his heart was fine. He has never had angina, congestive heart failure. His risk for vascular disease is male sex, hyperlipidemia, hypertension. His primary care provider is a midlevel provider that he cannot remember her name. She is with [facility] [place]. He woke this morning and started having epigastric abdominal pain. The pain went from the epigastrium to the umbilicus was intense and a 10 out of a 10. It was unremitting. He felt like it was nonstop with pain being poured on top of pain over and over again. No chest pain. No shortness of breath. No neck pain or jaw pain. No vomiting. Bowel movement was today. No diarrhea. No blood in urine or stool. He has never had gallbladder issues. After no relief of pain with an extra ibuprofen, he came to the ER. He said that as he was getting up from his chair in the waiting room to be taken back by the triage nurse, the pain was overwhelmingly intense and he lost consciousness for a moment. Temperature was 36.6. Pulse 61. Respirations 20. O2 sat 98% on room air, and 143/74 blood pressure. His lungs were clear, no respiratory distress. Abdomen had generalized abdominal tenderness on palpation with mild distention but was soft. Generalized guarding on exam. No CVA tenderness. His chemistries were normal except for calcium that was mildly elevated at 10.4. In looking at his old records his calcium was 9.4 in 2018, 10.March, and now 10.4. Liver enzymes are normal. Lipase is 17. White cell count was 11.3, hemoglobin 13.9. He did have a mild left shift on his white cell count. Chest x-ray did not have acute cardiopulmonary process. Abdomen/pelvis CT had left lower lobe groundglass opacity. Free fluid seen adjacent to the liver. The biliary tree was unremarkable as was the gallbladder. Spleen and pancreas were unremarkable. Small bowel, had multiple distended loops of small bowel dilated up to 4 cm. Focal short segment transition point within the mid abdomen. Distal to this is a longer segment of circumferential small bowel thickening with mild associated mesenteric edema. There is no extraluminal gas. No infrarenal aortic aneurysm. Patent portal vein. The ER provider discussed the case with general surgery. Patient needs to be admitted for small bowel enteritis with possible early obstruction. General surgery is asking if we could admit and they will consult. On review of systems he tells me that he has early cataracts. But no glaucoma or vision problems. No problems with swallowing or allergies. Had bronchitis once in his life but no chronic lung problems. No history of angina, congestive heart failure, palpitations. No edema orthopnea. No problems with GI tract. No reflux, indigestion. He takes the ibuprofen 800 mg a day and then takes a PPI to protect his stomach. He denies any problems with his prostate. Pees 2 times a night but he also drinks a glass of water twice a night. No problem with stream. He has terrible chronic back pain and has had lumbar epidural steroid injections. That is why he takes the ibuprofen. But no problems in his hips or knees. No recent skin changes. No unexpected weight loss or weight gain. No cold symptoms. Denies depression, anxiety, suicidal ideation. No hallucinations. Denies any problems with memory, syncope, or seizures. CONSULTS | PROCEDURES Consultations: General Surgery Procedures: CTA of abdomen with thickened loops of small bowel Gastrografin with upper GI small bowel follow-through showed delay of contrast in the stomach and then eventual release into the small bowel and large bowel. No obstruction Intact PTH level done for elevated calcium was 65 and normal HOSPITAL COURSE Hospital Course: NG tube was placed and the patient said he had almost immediate relief of the agonizing pain he was experiencing. He did not have an elevated white cell count. He was not hypoxic. Pain was managed with IV opioids, and nausea was managed with Zofran IV. General surgery saw the patient. Differential diagnosis of adhesions versus volvulus versus cancer versus ischemia versus infection were all entertained. Not clear why this patient developed dilated loops of small bowel and that his history was negative for a lot of possible causes. He had no diarrhea. After Gastrografin upper GI study his symptoms resolved. He was able to be started on a diet and advanced. He is now stable for discharge. I am asking that he follow-up with his primary care provider and he be referred to gastroenterology for consideration of a possible capsule endoscopy to visualize the small bowel. Discharge blood pressure is 129/70, pulse 76 respirations 16 temp 36.6 O2 sat 94%. He is a 5 feet 9 inch white male that is 91.5 kg. Pleasant, alert, oriented. Able to follow commands. Supple neck. Lungs are clear to auscultation and percussion. Regular rate and rhythm. The abdomen is still slightly achy with deep palpation but normal bowel sounds. He has tolerated 2 meals and has had several bowel movements. Extremities are without edema. Discharge instructions provided to the patient. This document was made in part using voice recognition software. While efforts are made to proofread this document, sound alike and grammatical errors may occur. ALLERGIES Allergies Allergy/AdvReac Type Severity Reaction Status Date / Time codeine AdvReac Unknown Verified 02/04/25 14:29 MEDICATIONS Ambulatory Orders Medication Instructions Recorded Confirmed ibuprofen 800 mg tablet 800 mg PO DAILY PAIN &/OR FE USHA 05/09/21 02/05/25 lisinopril 20 mg tablet (Zestril) 40 mg PO DAILY 05/0902/05/25 omeprazole 20 mg capsule,delayed 20 mg PO QDAC 5 02/05/25 release rosuvastatin 40 mg tablet (Crestor) 40 mg PO DAILY 07/0102/05/25 PHYSICAL EXAM AT DISCHARGE Vital Signs: Vital Signs x48h Temp Pulse Resp BP Pulse Ox 02/05/25 12:14 36.6 C 76 16 129/70 94 LABS 02/05/25 04:55 02/05/25 04:55 Discharge Plan Discharge Patient Disposition: Home, Self Care Condition: Good Medically Cleared Date:: 02/05/25 Prescriptions: Continued ibuprofen 800 MG tablet 800 mg PO DAILY lisinopril [Zestril] 20 MG tablet 40 mg PO DAILY rosuvastatin [Crestor] 40 mg tablet 40 mg PO DAILY omeprazole 20 mg capsule,delayed release(DR/EC) 20 mg PO QDAC Diet: Regular Health Concerns: You are relatively healthy gentleman who is active. And you do not have any significant gastrointestinal history other than polyps with colon biopsy. He began having sudden onset of abdominal pain in the area between your rib cage and your bellybutton that was unremitting and overwhelming. You came to the emergency room and we found you to have dilated loops of bowel intermittently throughout the small bowel. There was no clear obstruction. You have not had a previous abdominal surgery so it was not adhesions. There was no diarrhea so we did not suspect infectious diarrhea. We are puzzled about the cause of the sudden onset. You underwent a Gastrografin small bowel follow-through and the dye went through your bowel and there is no obstruction. We started you on a clear liquid diet and you have been able to advance well without having nausea, vomiting or abdominal pain. Instructions for discharge: 1. Please see Chris Nichols in follow-up in the next 1 to 2 weeks. 2. I am recommending that you see gastroenterology and consider getting evaluated with a pill endoscopy camera to get good visualization of your small bowel. This is because we really did not figure out why your small bowel reacted this way. 3. You shared with me that you are getting ready to go to [place]. I am advising you to get travel insurance, and at least identify the larger hospitals you could get to if you are sick. And make sure your travel insurance includes airlift insurance to get you out of that country and bring you back here or to a larger hospital. Print Language: Wolof Patient Instructions: ED Gastroenteritis, Noninfectious Follow-up Care: CHRIS NICHOLS APRN [Physician No Access, Family Practice] Vitals documented within 30 minutes of discharge?: Yes
== END 2025-02-05 15:45 | disposition home or self-care (01) ==
LOC: MS2 14:20 → ED 14:20 → MS2 17:35
PROVIDERS: ADMIT Specialist; ATTEND Specialist
DX: M54.50 Low back pain, unspecified; D72.829 Elevated white blood cell count, unspecified; R07.9 Chest pain, unspecified; Z91.85 Personal history of military service; Z79.899 Other long term (current) drug therapy; E78.5 Hyperlipidemia, unspecified; G89.29 Other chronic pain; I10 Essential (primary) hypertension; I49.3 Ventricular premature depolarization; E83.52 Hypercalcemia; Z87.891 Personal history of nicotine dependence; K52.9 Noninfective gastroenteritis and colitis, unspecified